=== PATIENT | male | born 1950 | race Caucasian/White ===

== ENCOUNTER 2016-10-26 07:13 | Day surgery (SDC) | payer MEDICARE, OTHER ==
--- NOTE | ~2016-10-26 | EGD ---
EGD REPORT [facility] [address] [address] NAME: LUCILA DAVIS : [birth year] STATUS : REG [facility]#: [id number] AGE: 66 ADM/REG DATE : 10/26/16 MR#: [id number] REPORT SERV DATE: 10/26/16 DICTATED BY: ROBERTO TOUSSAINT DATE: 10/26/16 REPORT STATUS : Draft TRANSCRIBED BY: [facility] DATE: 10/26/16 Endoscopy Center Patient Name: Lucila Davis Date of : 1950 Attending MD: ROBERTO TOUSSAINT MD Procedure Date No Time: 10/26/2016 Procedure: Upper GI endoscopy Indications: Dysphagia Referring MD: Carole Blanchard Medicines: Propofol per Anesthesia Complications: No immediate complications. Procedure: Pre-Anesthesia Assessment: - ASA Grade Assessment: II - A patient with mild systemic disease. After obtaining informed consent, the endoscope was passed under direct vision. Throughout the procedure, the patient's blood pressure, pulse, and oxygen saturations were monitored continuously. The GIF [id number] was introduced through the mouth, and advanced to the cricopharyngeal esophagus. The upper GI endoscopy was performed with moderate difficulty due to abnormal anatomy. Findings: Pt has complete blockage of the hypopharynx. The pharyngeal area was edematous and friable. There is bleeding just on contac with mid and hypharyngeal area. There is severe scarring at the hypopharynx. The opening to the upper esophageal sphincer could not be identified due to severe scarring. Esophagus could could not be visualized due to nonpassage of the scope beyond the hypopharyngeal area. Impression: Hypopharyngeal stricture. Recommendation: Continue to use peg tube for feeding. Procedure Code(s): --- Professional --- 12233, Esophagoscopy, flexible, transoral; diagnostic, including collection of specimen(s) by brushing or washing, when performed (separate procedure) Diagnosis Code(s): --- Professional --- R13.10, Dysphagia, unspecified EGD REPORT [facility] [address] [facility] [id number] NAME: LUCILA DAVIS : [birth year] STATUS : REG [facility] [place] PAT#: [id number] AGE: 66 ADM/REG DATE : 10/26/16 MR#: [id number] REPORT SERV DATE: 10/26/16 DICTATED BY: ROBERTO TOUSSAINT. DATE: 10/26/16 REPORT STATUS : Draft TRANSCRIBED BY: [employer] [facility] DATE: 10/26/16 CPT copyright 2013 [employer]. All rights reserved. The codes documented in this report are preliminary and upon instrument assembler review may be revised to meet current compliance requirements. Roberto Toussaint MD ROBERTO TOUSSAINT MD 10/26/2016 8:55 AM This report has been signed electronically. Number of Addenda: 0 Note Initiated On: 10/26/2016 8:37 AM Scope Withdrawal Time 0 hours 0 minutes 0 seconds [id number] [place] [id number]
[~2016-10-26 07:13] MED LIST: BACDS PEG; GLUCPH PEG; MELATONIN1 M1 PEG; MORPHINE S20 MG/5 ML PEG; PCET PO; Q-TUSSIN PEG; T PO
== END 2016-10-26 23:59 | disposition home health service (06) ==
LOC: DMU 07:13
PROVIDERS: Internal Medicine Gastroenterology
PROC: 0DJ08ZZ Inspection of Upper Intestinal Tract, Via Natural or Artificial Opening Endoscopic (ICD-10-PCS; principal; 2016-10-26 08:30)
DX: J39.2 Other diseases of pharynx (principal); E11.9 Type 2 diabetes mellitus without complications; Z87.891 Personal history of nicotine dependence; Z98.890 Other specified postprocedural states
CPT/HCPCS: 82962